=== PATIENT | male | born 1990 | race Caucasian/White ===

== ENCOUNTER 2018-02-15 21:33 | Emergency (ER) | payer MEDICAID ==
[~2018-02-15] VITALS: Ht 165.1 cm; Wt 45.4 kg
[2018-02-15] MEDS ORDERED: NKM (21:58)
[2018-02-15 22:05] VITALS: BP 119/87
[2018-02-15] MEDS ORDERED: ADULT WAL-100 MG/5 M ORAL (22:20)
[2018-02-15 22:30] VITALS: BP 119/87
[2018-02-15] MEDS ORDERED: guaiFENesin 100mg/5ml Liq ud ORAL ONE (22:30)
--- NOTE | 2018-02-15 22:30 | Emergency Room Report ---
History of Present Illness General Chief Complaint: Upper Respiratory Illness Source: Patient Present Illness HPI Patient is a 27-year-old male who presented after increased nasal congestion. Patient reported having gradual onset of symptoms of the past few days. Patient reports having some cough. the patient denies any fever. Patient reports being a smoker. The history is limited by patient's poor cooperation. Allergies: Coded Allergies: CODEINE (Verified Allergy, Unknown, 02/15/18) RISPERIDONE (Verified Allergy, Unknown, 02/15/18) Patient History Past Medical History: see triage record Reviewed Nursing Documentation: PMH: Agreed; PSxH: Agreed Nursing Documentation-PMH Past Medical History: No Stated History Review of Systems All Other Systems: negative except mentioned in HPI Physical Exam Vital Signs Date Time Temp Pulse Resp B/P (MAP) Pulse Ox O2 Delivery O2 Flow Rate FiO2 02/15/18 21:54 97.8 82 16 119/87 100 Room Air 97.9 General Appearance: well appearing, no apparent distress, alert, GCS 15 Head: normocephalic, atraumatic ENT: hearing grossly normal, normal voice, uvula midline, moist mucus membranes Neck: full range of motion, supple Respiratory: lungs clear, normal breath sounds, no rhonchi, no respiratory distress, speaking full sentences Cardiovascular #1: normal peripheral pulses, no edema, no gallop Gastrointestinal: normal bowel sounds, non tender, soft, no mass Musculoskeletal: normal inspection, no calf tenderness Neurologic: normal inspection, alert, oriented x3, responsive, normal gait Psychiatric: normal inspection, mood/affect normal Skin: no rash Medical Decision Making Diagnostic Impression: Primary Impression: Upper respiratory infection ER Course Patient presented for cough. Differential diagnosis included but was not limited to bronchitis, pneumonia, pulmonary embolism, pericarditis, asthma, foreign body. Patient has a benign exam and does not appear to require any further imaging or laboratory testing at this time. The patient was given oral cough medications. The patient does not appear to have any evidence of pneumonia at this time. The patient appears to have upper respiratory infection. Patient given prescription for guaifenesin syrup.The patient is advised to follow up with primary care doctor in 1-2 days. Patient is advised to return if any worsening condition or if any changes in status that are concerning. This report is dictated with [employer] software which may occasionally lead to discrepancies related to use of this software. Last Vital Signs Date Time Temp Pulse Resp B/P (MAP) Pulse Ox O2 Delivery O2 Flow Rate FiO2 02/15/18 21:54 97.8 82 16 119/87 100 Room Air 97.9 Status: improved Disposition: HOME, SELF-CARE Condition: Stable Scripts Guaifenesin* (ADULT WAL-TUSSIN*) 100 Mg/5 Ml Liquid 10 ML ORAL Q4H, #120 ML Prov: Nicanor Kaiser MD 02/15/18 Patient Instructions: Upper Respiratory Infection, Adult Nicanor Kaiser MD Feb 15, 2018 22:30
== END 2018-02-15 22:30 | disposition home or self-care (01) ==
LOC: EMR 22:27
DX: J06.9 Acute upper respiratory infection, unspecified (principal); Z88.5 Allergy status to narcotic agent; Z88.8 Allergy status to other drugs, medicaments and biological substances
CPT/HCPCS: 99283